=== PATIENT | male | born 1945 | race Caucasian/White ===

== ENCOUNTER 2017-01-10 20:53 | Emergency (ER) | payer MEDICARE, OTHER, SELFPAY ==
[2017-01-10 21:19] LABS: BASO # 0.1 10_X3_uL (0.0-0.1); BASO % 0.4 % (0.2-1.2); EOS # 0.7 10_X3_uL (0.0-0.5); EOS % 4.2 % (0.8-7.0); GRAN # 6.7 10_X3_uL (1.8-5.4); GRAN % 41.6 % (34.0-67.9); HEMATOCRIT 51.4 % (40-51); HEMOGLOBIN 17.5 g/dL (13.7-17.5); LYMPH # 7.3 10_X3_uL (1.3-3.6); LYMPH % 45.4 % (21.8-53.1); MEAN PLATELET VOLUME 10.7 fl (7.5-11.5); MONO # 1.4 10_X3_uL (0.3-0.8); MONO % 8.4 % (5.3-12.2); PLATELET COUNT 277 x10_3/uL (163-337); RED BLOOD COUNT 5.47 x10_6/uL (4.6-6.1); RED CELL DISTRIBUTION WIDTH 13.2 % (11.6-14.4); WHITE BLOOD COUNT 16.1 x10_3/uL (4.2-9.1)
[2017-01-10 21:25] LABS: ARTERIAL BLD GAS O2 SATURATION 81.3 % (94-98); ARTERIAL BLOOD GAS BASE EXCESS 0.1 mmol/L (-2.0-3.0); ARTERIAL BLOOD GAS HCO3 29.5 mmol/L (22-26); ARTERIAL BLOOD GAS pH 7.26 (7.35-7.45)
[2017-01-10 21:29] LABS: ARTERIAL BLOOD GAS PCO2 68.4 mmHg (35-48)
[2017-01-10 21:30] LABS: BLOOD UREA NITROGEN 19 mg/dL (7-18); CALCIUM 9.1 mg/dL (8.7-10.7); CARBON DIOXIDE 27 mmol/L (21-32); GLUCOSE,RANDOM 232 mg/dL (70-99); SODIUM 140 mmol/L (136-145)
[2017-01-10 23:14] LABS: ARTERIAL BLD GAS O2 SATURATION 97.8 % (94-98); ARTERIAL BLOOD GAS BASE EXCESS 2.9 mmol/L (-2.0-3.0); ARTERIAL BLOOD GAS HCO3 32.6 mmol/L (22-26); ARTERIAL BLOOD GAS pH 7.25 (7.35-7.45)
[2017-01-10 23:18] LABS: ARTERIAL BLOOD GAS PCO2 76.4 mmHg (35-48)
== END 2017-01-11 07:15 | disposition short-term general hospital (02) ==
LOC: ER 20:53
PROVIDERS: General Practice
DX: J93.83 Other pneumothorax (principal); E87.2 Acidosis; R06.02 Shortness of breath; I48.91 Unspecified atrial fibrillation; I25.10 Atherosclerotic heart disease of native coronary artery without angina pectoris; Z95.5 Presence of coronary angioplasty implant and graft; F41.9 Anxiety disorder, unspecified; G89.4 Chronic pain syndrome; Z88.1 Allergy status to other antibiotic agents; Z88.8 Allergy status to other drugs, medicaments and biological substances; Z79.899 Other long term (current) drug therapy; Z79.82 Long term (current) use of aspirin
CPT/HCPCS: 36415; 36600; 71010; 74000; 80048; 82803; 83880; 85025; 93005; 94660; 96374; 99070; 99285-25; 99291; J1170

== ENCOUNTER 2017-03-04 14:01 | Inpatient (IN) | payer MEDICARE ==
[~2017-03-04] VITALS: Ht 180.3 cm; Wt 91.0 kg
[2017-03-04 14:51] LABS: BASO % 0.1 % (0.2-1.2); EOS % 0.1 % (0.8-7.0); GRAN # 12.4 10_X3_uL (1.8-5.4); GRAN % 89.6 % (34.0-67.9); HEMATOCRIT 47.1 % (40-51); LYMPH # 0.6 10_X3_uL (1.3-3.6); LYMPH % 4.5 % (21.8-53.1); MEAN CORPUSCULAR HEMOGLOBIN 30.8 pg (27.0-33.0); MEAN CORPUSCULAR VOLUME 90.6 fL (79-92); MEAN PLATELET VOLUME 10.6 fl (7.5-11.5); MONO # 0.8 10_X3_uL (0.3-0.8); MONO % 5.7 % (5.3-12.2); PLATELET COUNT 224 x10_3/uL (163-337); RED CELL DISTRIBUTION WIDTH 12.4 % (11.6-14.4); WHITE BLOOD COUNT 13.9 x10_3/uL (4.2-9.1)
[2017-03-04 15:07] LABS: ALBUMIN 3.9 gm/dL (3.4-5.0); ALKALINE PHOSPHATASE 63 U/L (50-136); ALT/SGPT 14 U/L (7.53-40.17); AST/SGOT 12 U/L (6.66-35.34); BILIRUBIN,TOTAL 0.73 mg/dL (0.0-1.0); BLOOD UREA NITROGEN 11 mg/dL (7-18); CALCIUM 9.3 mg/dL (8.7-10.7); CARBON DIOXIDE 32 mmol/L (21-32); GLUCOSE,RANDOM 225 mg/dL (70-99); POTASSIUM 3.9 mmol/L (3.5-5.1); SODIUM 138 mmol/L (136-145); TOTAL PROTEIN 7.7 gm/dL (6.4-8.2)
[2017-03-04 15:08] LABS: BILIRUBIN,DIRECT < 0.20 mg/dL (0.0-0.30)
[2017-03-04 15:16] LABS: URINE BILIRUBIN NEGATIVE (NEGATIVE); URINE BLOOD TRACE (NEGATIVE); URINE GLUCOSE (UA) NORMAL (NORMAL); URINE KETONE NEGATIVE (NEGATIVE); URINE LEUKOCYTE ESTERASE TRACE (NEGATIVE); URINE NITRATE NEGATIVE (NEGATIVE); URINE PROTEIN 1+ (NEGATIVE); UROBILINOGEN NORMAL mg/dL (<1.0)
[2017-03-04 15:35] LABS: URINE RBC 0-5 /[HPF] (0-2)
[2017-03-04 15:36] LABS: URINE BACTERIA FEW (NONE SEEN); URINE SQUAMOUS EPITHELIAL CELL 0-10 /[HPF] (NONE SEEN); URINE YEAST FEW (NONE SEEN)
[2017-03-04 21:21] LABS: DIGOXIN 0.8 ng/ml (0.90-2.00)
[2017-03-06 07:23] LABS: BASO % 0.2 % (0.2-1.2); EOS % 0.3 % (0.8-7.0); GRAN # 7.3 10_X3_uL (1.8-5.4); GRAN % 78.4 % (34.0-67.9); HEMATOCRIT 42.5 % (40-51); HEMOGLOBIN 13.7 g/dL (13.7-17.5); LYMPH # 0.9 10_X3_uL (1.3-3.6); LYMPH % 9.9 % (21.8-53.1); MEAN CORPUSCULAR HEMOGLOBIN 30.2 pg (27.0-33.0); MEAN CORPUSCULAR HGB CONC 32.2 g/dL (32.0-36.0); MEAN CORPUSCULAR VOLUME 93.6 fL (79-92); MEAN PLATELET VOLUME 10.9 fl (7.5-11.5); MONO # 1.1 10_X3_uL (0.3-0.8); MONO % 11.2 % (5.3-12.2); PLATELET COUNT 182 x10_3/uL (163-337); RED BLOOD COUNT 4.54 x10_6/uL (4.6-6.1); RED CELL DISTRIBUTION WIDTH 12.8 % (11.6-14.4); WHITE BLOOD COUNT 9.4 x10_3/uL (4.2-9.1)
[2017-03-06 07:26] LABS: BLOOD UREA NITROGEN 9 mg/dL (7-18); CARBON DIOXIDE 31 mmol/L (21-32); CREATININE 0.7 mg/dL (0.6-1.3); GLUCOSE,RANDOM 213 mg/dL (70-99); POTASSIUM 3.9 mmol/L (3.5-5.1); SODIUM 139 mmol/L (136-145)
[2017-03-07 07:08] LABS: HEMOGLOBIN 13.2 g/dL (13.7-17.5); MEAN CORPUSCULAR HEMOGLOBIN 30.3 pg (27.0-33.0); MEAN CORPUSCULAR HGB CONC 32.2 g/dL (32.0-36.0); MEAN PLATELET VOLUME 10.3 fl (7.5-11.5); RED BLOOD COUNT 4.36 x10_6/uL (4.6-6.1); RED CELL DISTRIBUTION WIDTH 12.9 % (11.6-14.4); WHITE BLOOD COUNT 9.3 x10_3/uL (4.2-9.1)
[2017-03-07 07:27] LABS: BLOOD UREA NITROGEN 9 mg/dL (7-18); CALCIUM 7.9 mg/dL (8.7-10.7); CARBON DIOXIDE 32 mmol/L (21-32); CREATININE 0.6 mg/dL (0.6-1.3); GLUCOSE,RANDOM 158 mg/dL (70-99); POTASSIUM 3.6 mmol/L (3.5-5.1); SODIUM 142 mmol/L (136-145)
[2017-03-09 07:41] LABS: HEMATOCRIT 39.9 % (40-51); HEMOGLOBIN 12.6 g/dL (13.7-17.5); MEAN CORPUSCULAR HEMOGLOBIN 30.4 pg (27.0-33.0); MEAN CORPUSCULAR HGB CONC 31.6 g/dL (32.0-36.0); MEAN CORPUSCULAR VOLUME 96.1 fL (79-92); MEAN PLATELET VOLUME 10.3 fl (7.5-11.5); RED BLOOD COUNT 4.15 x10_6/uL (4.6-6.1); RED CELL DISTRIBUTION WIDTH 12.9 % (11.6-14.4); WHITE BLOOD COUNT 6.5 x10_3/uL (4.2-9.1)
[2017-03-09 07:47] LABS: BLOOD UREA NITROGEN 8 mg/dL (7-18); CARBON DIOXIDE 35 mmol/L (21-32); CREATININE 0.6 mg/dL (0.6-1.3); GLUCOSE,RANDOM 161 mg/dL (70-99); POTASSIUM 3.5 mmol/L (3.5-5.1); SODIUM 143 mmol/L (136-145)
[2017-03-10 06:40] LABS: HEMATOCRIT 41.5 % (40-51); HEMOGLOBIN 13.1 g/dL (13.7-17.5); MEAN CORPUSCULAR HEMOGLOBIN 30.4 pg (27.0-33.0); MEAN CORPUSCULAR HGB CONC 31.6 g/dL (32.0-36.0); MEAN CORPUSCULAR VOLUME 96.3 fL (79-92); MEAN PLATELET VOLUME 9.6 fl (7.5-11.5); RED BLOOD COUNT 4.31 x10_6/uL (4.6-6.1); RED CELL DISTRIBUTION WIDTH 12.8 % (11.6-14.4); WHITE BLOOD COUNT 8.7 x10_3/uL (4.2-9.1)
[2017-03-10 07:05] LABS: BLOOD UREA NITROGEN 8 mg/dL (7-18); CALCIUM 8.2 mg/dL (8.7-10.7); CARBON DIOXIDE 34 mmol/L (21-32); CREATININE 0.7 mg/dL (0.6-1.3); GLUCOSE,RANDOM 184 mg/dL (70-99); POTASSIUM 3.7 mmol/L (3.5-5.1); SODIUM 145 mmol/L (136-145)
== END 2017-03-10 13:35 | disposition other institution (70) | DRG 871 ==
LOC: ER 14:01 → MS 17:25 → UNDODEPER 03-08 18:06 → MS 03-10 13:35
PROVIDERS: Internal Medicine; ADMIT Family Medicine
DX: A41.9 Sepsis, unspecified organism (principal); I63.9 Cerebral infarction, unspecified; N39.0 Urinary tract infection, site not specified; L03.211 Cellulitis of face; B95.4 Other streptococcus as the cause of diseases classified elsewhere; Z85.528 Personal history of other malignant neoplasm of kidney; Z85.51 Personal history of malignant neoplasm of bladder; Z85.038 Personal history of other malignant neoplasm of large intestine; R41.82 Altered mental status, unspecified; I95.9 Hypotension, unspecified; K02.9 Dental caries, unspecified; H05 Disorders of orbit; M62.81 Muscle weakness (generalized); K04.7 Periapical abscess without sinus; I25.10 Atherosclerotic heart disease of native coronary artery without angina pectoris; Z95.810 Presence of automatic (implantable) cardiac defibrillator; Z95.1 Presence of aortocoronary bypass graft; E11.9 Type 2 diabetes mellitus without complications; Z88.8 Allergy status to other drugs, medicaments and biological substances; Z88.1 Allergy status to other antibiotic agents; Z79.899 Other long term (current) drug therapy; Z79.82 Long term (current) use of aspirin
CPT/HCPCS: 36415; 70450; 70486; 71010; 80048; 80053; 80061; 80162; 80198; 81001; 82248; 82962; 83036; 83605; 85025; 87040; 87086; 96361; 96365; 99070; 99284; 99284-25; Q0169

== ENCOUNTER 2017-03-04 14:01 | Emergency (ER) | payer MEDICARE, OTHER | END 2017-03-04 17:25 | disposition other institution (70) | LOC: ER 14:01 | DX: N39.0 Urinary tract infection, site not specified (principal); R50.9 Fever, unspecified; R10.9 Unspecified abdominal pain; Z95.810 Presence of automatic (implantable) cardiac defibrillator; Z85.528 Personal history of other malignant neoplasm of kidney; Z99.81 Dependence on supplemental oxygen; Z79.899 Other long term (current) drug therapy; Z88.1 Allergy status to other antibiotic agents; Z88.8 Allergy status to other drugs, medicaments and biological substances; Z85.038 Personal history of other malignant neoplasm of large intestine | CPT/HCPCS: 99284; 99284-25 ==

== ENCOUNTER 2017-03-30 10:37 | Emergency (ER) | payer MEDICARE, OTHER ==
[2017-03-30 11:24] LABS: BASO # 0.1 10_X3_uL (0.0-0.1); BASO % 0.4 % (0.2-1.2); EOS # 0.4 10_X3_uL (0.0-0.5); GRAN # 9.6 10_X3_uL (1.8-5.4); GRAN % 77.6 % (34.0-67.9); HEMATOCRIT 33.9 % (40-51); LYMPH # 1.6 10_X3_uL (1.3-3.6); LYMPH % 13.2 % (21.8-53.1); MEAN CORPUSCULAR HEMOGLOBIN 30.4 pg (27.0-33.0); MEAN CORPUSCULAR HGB CONC 32.4 g/dL (32.0-36.0); MEAN CORPUSCULAR VOLUME 93.6 fL (79-92); MEAN PLATELET VOLUME 10.4 fl (7.5-11.5); MONO # 0.7 10_X3_uL (0.3-0.8); MONO % 5.8 % (5.3-12.2); PLATELET COUNT 289 x10_3/uL (163-337); RED BLOOD COUNT 3.62 x10_6/uL (4.6-6.1); RED CELL DISTRIBUTION WIDTH 13.7 % (11.6-14.4); WHITE BLOOD COUNT 12.3 x10_3/uL (4.2-9.1)
[2017-03-30 11:29] LABS: PARTIAL THROMBOPLASTIN TIME 25.6 SECONDS (21.8-28.4); PROTHROMBIN TIME (PATIENT) 10.4 SECONDS (9.6-10.8)
[2017-03-30 11:33] LABS: ALBUMIN 3.6 gm/dL (3.4-5.0); ALKALINE PHOSPHATASE 48 U/L (50-136); ALT/SGPT 20 U/L (7.53-40.17); AST/SGOT 13 U/L (6.66-35.34); BILIRUBIN,TOTAL 0.36 mg/dL (0.0-1.0); CALCIUM 8.9 mg/dL (8.7-10.7); CARBON DIOXIDE 30 mmol/L (21-32); CREATINE KINASE 25 U/L (35-232); CREATININE 0.7 mg/dL (0.6-1.3); DIGOXIN 0.58 ng/ml (0.90-2.00); GLUCOSE,RANDOM 281 mg/dL (70-99); LIPASE 7 U/L (6.75-60.75); POTASSIUM 4.8 mmol/L (3.5-5.1); SODIUM 136 mmol/L (136-145); TOTAL PROTEIN 6.5 gm/dL (6.4-8.2)
[2017-03-30 11:44] LABS: BLOOD UREA NITROGEN 28 mg/dL (7-18)
[2017-03-30 11:47] LABS: URINE BILIRUBIN 1+ (NEGATIVE); URINE BLOOD NEGATIVE (NEGATIVE); URINE GLUCOSE (UA) 50 mg/dL (NORMAL); URINE KETONE NEGATIVE (NEGATIVE); URINE LEUKOCYTE ESTERASE TRACE (NEGATIVE); URINE NITRATE NEGATIVE (NEGATIVE); URINE PROTEIN 1+ (NEGATIVE); UROBILINOGEN NORMAL mg/dL (<1.0)
[2017-03-30 12:12] LABS: URINE BACTERIA TRACE (NONE SEEN); URINE RBC RARE /[HPF] (0-2); URINE SQUAMOUS EPITHELIAL CELL 0-10 /[HPF] (NONE SEEN); URINE WBC RARE /[HPF] (0-3); URINE YEAST FEW (NONE SEEN)
== END 2017-03-30 19:20 | disposition short-term general hospital (02) ==
LOC: ER 10:37
PROVIDERS: Family Medicine
DX: K62.5 Hemorrhage of anus and rectum (principal); I51.9 Heart disease, unspecified; Z95.1 Presence of aortocoronary bypass graft; E11.9 Type 2 diabetes mellitus without complications; Z95.810 Presence of automatic (implantable) cardiac defibrillator; Z85.038 Personal history of other malignant neoplasm of large intestine; Z85.528 Personal history of other malignant neoplasm of kidney; Z79.02 Long term (current) use of antithrombotics/antiplatelets; Z79.82 Long term (current) use of aspirin; Z88.1 Allergy status to other antibiotic agents; Z88.8 Allergy status to other drugs, medicaments and biological substances; Z79.4 Long term (current) use of insulin
CPT/HCPCS: 36415; 71010; 80053; 80162; 80198; 81001; 82550; 82553; 82962; 83690; 85025; 85610; 85730; 86850; 86900; 86901; 86920; 93005; 96360; 96361; 99283; 99284-25